=== PATIENT | female | born 1990 | race Caucasian/White ===

== ENCOUNTER 2018-03-02 01:53 | Emergency (ER) | payer OTHER ==
[~2018-03-02] VITALS: Ht 185.4 cm; Wt 136.1 kg
[2018-03-02 01:57] VITALS: BP 125/77
[2018-03-02] MEDS ORDERED: METOCLOPRAMIDE 10 MG/2 ML INJ VIAL IM ONE (02:20)
[2018-03-02] MEDS ORDERED: diphenhydrAMINE 50 MG/ML VIAL IM ONE (02:20)
[2018-03-02 03:19] VITALS: BP 132/82
== END 2018-03-02 03:16 | disposition home or self-care (01) ==
LOC: MED 01:53
DX: G43.909 Migraine, unspecified, not intractable, without status migrainosus (principal)
CPT/HCPCS: 96372; 99284; J1200; J2765